=== PATIENT | female | born 1955 | race Caucasian/White ===

== ENCOUNTER → 2017-07-22 | Outpatient (CLI) | payer BC ==
[~2017-07-22] MED LIST: CELE100C PO; DARI7.5T3 PO; ESOM20CA PO; GABA800T2 PO; LEVO25TA55 PO; UREA198C TP
--- NOTE | 2017-07-25 09:36 | KCIC ---
DATE: 07/22/2017 EXAM: MAMMO SANDRO SCREENING BILATERAL HISTORY: Routine screening COMPARISON: 10/04/2011 This study was interpreted with the benefit of Computerized Aided Detection (CAD). FINDINGS: Breast Density: SCATTERED The breast parenchyma shows scattered fibroglandular densities. Breast parenchyma level B. There are no dominant suspicious masses, suspicious microcalcifications or evidence of architectural distortion. There are no suspicious microcalcifications or architectural distortion or suspicious masses identified. Nodular appearing bilateral breasts again identified. IMPRESSION: Benign findings. BI-RADS CATEGORY: 2 BENIGN FINDING RECOMMENDED FOLLOW-UP: 12M 12 MONTH FOLLOW-UP PQRS compliance statement: Patient information was entered into a reminder system with a target due date 07/22/2018 for the next mammogram. Mammography is a sensitive method for finding small breast cancers, but it does not detect them all and is not a substitute for careful clinical examination. A negative mammogram does not negate a clinically suspicious finding and should not result in delay in biopsying a clinically suspicious abnormality. "Our facility is accredited by the [employer] Mammography [employer]."
== END | disposition home or self-care (01) ==
LOC: KCIC MAMMO 14:48
PROVIDERS: ATTEND Physician Assistant Medical
DX: Z12.31 Encounter for screening mammogram for malignant neoplasm of breast (principal)
CPT/HCPCS: 77063; G0202; 77067

== ENCOUNTER → 2017-08-11 | Outpatient (CLI) | payer BC ==
--- NOTE | 2017-08-12 00:52 | KCIC ---
EXAM: MRI right foot without contrast. HISTORY: Right foot pain and swelling. Concern for avascular necrosis of the sesamoid bones. TECHNIQUE: MRI of the right foot was performed without intravenous contrast. COMPARISON: None. FINDINGS: There is severe first metatarsal-sesamoid osteoarthritis with subchondral edema and cyst formation along the inferior articulation. This is worse medially than laterally. The medial sesamoid is edematous, likely from the same process. The lateral is not edematous. There is no clear fragmentation. Hallux valgus is mild. There are small to moderate soft tissue and osseous bunions. First metatarsophalangeal osteoarthritis is moderate. There appear to be changes of reimplantation of the tibialis anterior tendon, partially visualized. There appear to be screws within the distal tibia and medial malleolus. Tarsometatarsal osteoarthritis is mild to moderate. There is also mild to moderate talonavicular osteoarthritis. There is mild to moderate atrophy of the intrinsic musculature without clear edema to indicate denervation. No fractures are identified. The Lisfranc ligament is intact. The flexor and extensor mechanisms are intact. IMPRESSION: 1. Severe first metatarsal-sesamoid osteoarthritis with subchondral edema and cyst formation. No clear associated avascular necrosis. 2. First metatarsophalangeal osteoarthritis is mild to moderate. Additional osteoarthritis is mild to moderate elsewhere as above. 3. Mild hallux valgus with small to moderate soft tissue and osseous bunions. 4. Mild to moderate atrophy of the intrinsic musculature without clear denervation. Correlate clinically. Electronically signed by: Juan Stanley MD (08/12/2017 12:49 AM) [facility]
== END | disposition home or self-care (01) ==
LOC: KCIC MRI 14:29
PROVIDERS: ATTEND Podiatrist Foot & Ankle Surgery
DX: M84.374A Stress fracture, right foot, initial encounter for fracture (principal); M19.071 Primary osteoarthritis, right ankle and foot; M20.11 Hallux valgus (acquired), right foot
CPT/HCPCS: 73718

== ENCOUNTER → 2018-08-24 | Outpatient (CLI) | payer BC ==
[~2018-08-24] MED LIST changes: -GABA800T2 PO; +GABA800T3 PO
--- NOTE | 2018-08-24 10:47 | KCIC ---
MRI Brain without contrast History: Altered mental status, acute behavioral changes last week Technique: Multiplanar, multisequential noncontrast MR imaging was performed of the brain. Comparison: None Findings: There is no evidence of recent infarct or cytotoxic edema. The ventricles, sulci, and cisterns are within normal limits in size and configuration. There is no significant midline shift, intraaxial mass effect, or focal abnormal extra-axial fluid collection. There is scattered multifocal mild to moderate T2 and FLAIR hyperintense signal abnormality of the supratentorial parenchyma and cirilo, findings greatest of the left parietal temporal white matter. There is no significant hemosiderin deposition of the brain parenchyma. There is preservation of the major intracranial flow-voids at the skull base. The mastoid air cells are aerated. The cerebellar tonsils are normal in location. There is no significant abnormality of the pineal gland or pituitary gland. There is mild bilateral ethmoid air cell mucosal thickening. There is what likely represents a complex mucous retention cyst of the medial left maxillary sinus about 0.9 cm. There is preserved marrow signal of the clivus. Impression: 1. There is no evidence of a recent infarct or intracranial mass effect. Scattered T2 and FLAIR hyperintense signal abnormality of the supratentorial parenchyma and cirilo is nonspecific, may be due to chronic microvascular ischemic disease especially if risk factors such as hypertension or diabetes. Pattern is not particularly suggestive of an inflammatory demyelinating disease. Electronically signed by: Norm Cardona MD (08/24/2018 10:42 AM) [facility]
== END | disposition home or self-care (01) ==
LOC: KCIC MRI 09:00
PROVIDERS: ATTEND Physician Assistant Medical
DX: R41.82 Altered mental status, unspecified (principal)
CPT/HCPCS: 70551

== ENCOUNTER → 2019-02-23 | Outpatient (CLI) | payer BC ==
[~2019-02-23] MED LIST changes: -GABA800T3 PO; +GABA800T5 PO
--- NOTE | 2019-02-23 10:28 | KCIC ---
PQRS Compliance Statement: One or more of the following individualized dose reduction techniques were utilized for this examination: 1. Automated exposure control 2. Adjustment of the mA and/or kV according to patient size 3. Use of iterative reconstruction technique CT maxillofacial without contrast February 23, 2019 INDICATION: Recurrent sinusitis. COMPARISON: None available. TECHNIQUE: Multiple axial CT images of the maxillofacial structures were obtained without intravenous contrast. Coronal and sagittal reformats are provided. FINDINGS: Evaluation of the soft tissues is limited by bone algorithm. There is a small mucus retention cyst in the left maxillary sinus measuring 9 mm. There is mild mucosal thickening of the right maxillary sinus measuring up to 3 mm. There is moderate mucosal thickening of the ethmoid air cells bilaterally involving both anterior and posterior ethmoid air cells. The left ostiomeatal unit is narrowed, however patent. Right ostiomeatal unit appears occluded by mucosal thickening. Nasal septum is predominantly midline. Nasal turbinates appear intact. There is mild mucosal thickening of the right sphenoid sinus measuring 1 to 2 mm in maximal thickness. Mild mucosal thickening of the frontal sinuses. There is occlusion of the right frontal ethmoidal recess. Skull base is intact. No osseous erosion is identified. Maxilla is intact. Mastoid air cells are well aerated. Middle ear cavities are well aerated. IMPRESSION: Mild to moderate mucosal inflammatory changes, as described in detail above. Right ostiomeatal unit and right frontoethmoidal recess appear occluded. Electronically signed by: Sapna Atwood MD (02/23/2019 10:25 AM) [id number]
== END | disposition home or self-care (01) ==
LOC: KCIC CT 09:46
PROVIDERS: ATTEND Physician Assistant Medical
DX: J34.1 Cyst and mucocele of nose and nasal sinus (principal); J34.89 Other specified disorders of nose and nasal sinuses; J32.9 Chronic sinusitis, unspecified
CPT/HCPCS: 70486

== ENCOUNTER → 2019-07-18 | Outpatient (CLI) | payer BC ==
--- NOTE | 2019-07-18 12:33 | KCIC ---
EXAM: Bilateral digital screening mammogram with tomosynthesis. HISTORY: 63-year-old female presents for screening mammography. TECHNIQUE: Full-field digital craniocaudal and mediolateral oblique 2D and 3D tomosynthesis images of both breasts are obtained for evaluation. Computer aided detection with RevolvD software version 9.3 was applied. COMPARISON: 07/22/2017 BREAST PARENCHYMAL DENSITY: Level B - Scattered fibroglandular densities. FINDINGS: There is no new suspicious mass, microcalcification or region of architectural distortion. There are stable areas of nodularity and asymmetry within both breasts. IMPRESSION: BI-RADS Category 2: Benign finding(s). RECOMMENDATION: Annual mammography is recommended. If your mammogram demonstrates that you have dense breast tissue, which could hide abnormalities, and if you have other risk factors for breast cancer that have been identified, you might benefit from supplemental screening tests that may be suggested by your ordering physician. Dense breast tissue, in and of itself, is a relatively common condition. This information is not provided to cause undue concern, but rather to raise your awareness and to promote discussion with your physician regarding the presence of other risk factors, in addition to dense breast tissue. A report of your mammography results will be sent to you and your physician. You should contact your physician if you have any questions or concerns regarding this report. Mammography is a sensitive method for finding small breast cancers, but it does not detect them all and is not a substitute for careful clinical examination. A negative mammogram does not negate a clinically suspicious finding and should not result in delay in biopsying a clinically suspicious abnormality. PQRS compliance statement - Patient information was entered into a reminder system with a target due date for the next mammogram. "Our facility is accredited by the [employer] Mammography Program." Electronically signed by: Ni Cruz MD (07/18/2019 12:30 PM) [email or web address]
== END | disposition home or self-care (01) ==
LOC: MAMMO 07-04 08:18 → KCIC MAMMO 09:43
PROVIDERS: ATTEND Physician Assistant Medical
DX: Z12.31 Encounter for screening mammogram for malignant neoplasm of breast (principal)
CPT/HCPCS: 77063; 77067

== ENCOUNTER → 2021-10-01 | Outpatient (CLI) | payer MEDICARE, BC ==
--- NOTE | 2021-10-02 08:39 | KCIC ---
Bilateral digital screening mammograms with 3-D tomosynthesis: Reason for examination: Routine screening. Comparison is made to previous studies dated 07/18/2019, 07/22/2017 and 10/04/2011. Bilateral mammograms in CC and oblique projections were obtained with 2-D imaging and 3-D tomosynthes is imaging on a Siemens Inspiration unit and reviewed on the workstation. Interpretation was made wit h the benefit of CAD. The skin and nipples show no abnormalities. No abnormal axillary lymph nodes are seen. The breast par enchyma shows scattered fatty and fibroglandular density. (Breast density: Category B.) There continu es to be some patchy parenchymal asymmetry in the right breast which is stable. In the left breast ho wever, there is a cluster of calcifications developing posteriorly in the upper outer quadrant at the 2:30 C position. Further evaluation with coned compression magnification views CC and true lateral p rojections is recommended. There are no other new dominant masses, suspicious calcifications or archi tectural distortion. Impression: Cluster of calcifications developing posteriorly at the 2:30 C position of the left breast. Recommend further evaluation with coned compression magnification views in CC and true lateral projections. BI-RAD Category 0: Incomplete. Needs additional imaging evaluation. "Our facility is accredited by the [employer] Mammography Program." This patient's information has been entered into a reminder system for the patient to be notified wit h the results of her examination and a target date for the next mammogram. Electronically signed by: Tanja Diaz MD (10/02/2021 8:37 AM) [email or web address]
== END ==
LOC: KCIC MAMMO 11:05
PROVIDERS: ATTEND Physician Assistant Medical
DX: Z12.31 Encounter for screening mammogram for malignant neoplasm of breast (principal)
CPT/HCPCS: 77063; 77067

== ENCOUNTER → 2021-10-13 | Outpatient (CLI) | payer MEDICARE, BC ==
--- NOTE | 2021-10-13 13:24 | KCIC ---
Diagnostic digital mammograms left breast: Reason for examination: Calcifications on screening mammogram. Comparison is made to mammographic exams dated 10/01/2021 and 07/18/2019. Cone compression magnification views of the left breast were obtained with attention to the upper out er quadrant. At the 2:00 C position, there are clustered microcalcifications. Some of these calcification have a b ranching pattern. DCIS cannot be excluded and further evaluation with stereotactic biopsy is recommen ded. IMPRESSION: Clustered calcifications with some branching at the 2:00 C position of the left breast. Recommend sosa reotactic biopsy. BI-RADS Category 4: Suspicious. These findings have been discussed with the patient and the administrative services assistant for Maria Luisa Jacob, was noti fied about these findings via answering machine available at [id number] on 10/13/2021. "Our facility is accredited by the [employer] Mammography [employer]." Electronically signed by: Tanja Diaz MD (10/13/2021 1:22 PM) [email or web address]
== END ==
LOC: KCIC MAMMO 12:40
PROVIDERS: ATTEND Physician Assistant Medical
DX: R92.1 Mammographic calcification found on diagnostic imaging of breast (principal)
CPT/HCPCS: 77065

== ENCOUNTER → 2022-01-07 | Outpatient (CLI) | payer MEDICARE, BC ==
--- NOTE | 2022-01-07 10:32 | KCIC ---
EXAM: Lumbar spine MRI without contrast. HISTORY: Pain. TECHNIQUE: Multiplanar, multisequence magnetic resonance imaging of the lumbar spine was performed wi thout contrast. COMPARISON: 05/27/2014. FINDINGS: There is mild lumbar hyperlordosis. There is 4 mm grade 1 anterolisthesis of L4 on L5, 2 mm grade 1 anterolisthesis of L5 on S1, and 1 mm grade 1 anterolisthesis of L2 on L3 and L3 on L4. Ther e is multilevel endplate remodeling. There are multiple small endplate Schmorl's nodes. There are a f ew benign osseous hemangiomas. There is no suspicious osseous lesion or acute or subacute fracture. T he conus terminates at L1-L2. There is a 1.4 cm simple appearing cyst within the lateral mid zone of the right kidney. There is a p eripherally T2 to hypointense lesion within the posterior mid zone of the right kidney measuring appr oximately 2.1 cm. At T11-T12, there is a posterior central disc protrusion which slightly deforms the ventral aspect of the spinal cord. There is no stenosis. At T12-L1, there is no stenosis. At L1-L2, there is is no stenosis. At L2-L3, there is a shallow right foraminal to extraforaminal disc protrusion superimposed on a disc bulge. There is moderate bilateral facet arthropathy. There is mild right foraminal stenosis with ab utment of the extra foraminal right L2 nerve root. There is minimal central canal stenosis. At L3-L4, there is a disc bulge and endplate remodeling. There is moderate bilateral facet arthropath y. There is mild bilateral foraminal stenosis with abutment of the exiting L3 nerve roots. There is m ild central canal stenosis. At L4-L5, there are bilateral foraminal disc protrusions and slight superior extrusion superimposed o n a disc bulge and endplate remodeling. There is severe bilateral facet arthropathy. There is grade 1 anterolisthesis. There is moderate right and mild left foraminal stenosis with abutment the exiting L4 nerve roots. There is moderate central canal stenosis. At L5-S1, there are bilateral extraforaminal to lateral disc osteophyte complexes superimposed on a d isc bulge. There is mild right and moderate left facet arthropathy. There is grade 1 anterolisthesis. There is mild right and moderate left foraminal stenosis with abutment the exiting left greater than right L5 nerve roots. There is mild central canal stenosis. IMPRESSION: 1. Multilevel degenerative change involving the lumbar spine, described in detail above. This results in foraminal and central canal stenosis at the aforementioned levels. The right foraminal stenosis i s most significant at L4-L5. The left foraminal stenosis is most significant at L5-S1. The central ca nal stenosis is most significant at L4-L5. 2. Note is made that the aforementioned disc protrusions have increased at L4-L5 and decreased at L2- L3 compared to the prior exam. 3. Small right renal cyst and peripherally T2 hypointense lesion within the posterior mid zone of the kidney possibly due to prior lesion resection or ablation. Correlate with clinical history and prior renal imaging. Electronically signed by: Ni Cruz MD (01/07/2022 10:29 AM) [facility]
== END ==
LOC: KCIC MRI 08:29
PROVIDERS: ATTEND Physician Assistant Medical
DX: M47.816 Spondylosis without myelopathy or radiculopathy, lumbar region (principal); N28.1 Cyst of kidney, acquired; M51.27 Other intervertebral disc displacement, lumbosacral region; M48.07 Spinal stenosis, lumbosacral region; M48.8X7 Other specified spondylopathies, lumbosacral region; M51.24 Other intervertebral disc displacement, thoracic region; M43.17 Spondylolisthesis, lumbosacral region; M51.46 Schmorl's nodes, lumbar region; D18.09 Hemangioma of other sites; M25.78 Osteophyte, vertebrae
CPT/HCPCS: 72148